=== PATIENT | male | born 1980 | race Caucasian/White ===

== ENCOUNTER 2023-07-23 16:15 | Outpatient (RCR) | payer BC, SELFPAY | END 2023-09-02 16:04 | disposition home or self-care (01) | PROVIDERS: PCP Internal Medicine; Visit Provider Internal Medicine | DX: M54.41 Lumbago with sciatica, right side (principal); Z51.89 Encounter for other specified aftercare | CPT/HCPCS: 97012; 97110; 97140; 97161 ==